=== PATIENT | female | born 1985 | race African-American/Black ===

== ENCOUNTER 2018-08-25 16:36 | Emergency (ER) | payer OTHER ==
[~2018-08-25] VITALS: Ht 152.4 cm; Wt 49.9 kg
[2018-08-25 17:29] LABS: PLATELET COUNT 294 K/uL (152-353)
[2018-08-25 17:36] LABS: POTASSIUM 3.7 mmol/L (3.6-5.2)
[2018-08-25 20:22] VITALS: BP 119/71; TEMP 98.2
== END 2018-08-25 20:24 | disposition home or self-care (01) ==
LOC: ED 16:36
PROVIDERS: Family Medicine
DX: J06.9 Acute upper respiratory infection, unspecified (principal); J32.9 Chronic sinusitis, unspecified; R11.0 Nausea; R51 Headache
CPT/HCPCS: 36415; 80053; 85027; 87502; 87651; 96372; 99283; J0696; J2550